=== PATIENT | male | born 1975 | race African-American/Black ===

== ENCOUNTER 2018-08-29 10:23 | Day surgery (SDC) | payer MEDICAID ==
[~2018-08-29] VITALS: Ht 154.9 cm; Wt 42.2 kg
[2018-08-29] MEDS ORDERED: PROPOFOL 200MG/20ML VIAL IV ONE (12:19)
[2018-08-29] MEDS ORDERED: DIATR MEGLU/DIATRIZOATE SOLN 30ML ONE (12:43)
[2018-08-29] MEDS ORDERED: MULT-1241 GT (12:58)
[2018-08-29] MEDS ORDERED: METO5TAB86 GT (12:58)
[2018-08-29] MEDS ORDERED: LACT10SO6 GT (12:58)
[2018-08-29] MEDS ORDERED: ESOM40CA GT (12:58)
[2018-08-29] MEDS ORDERED: OLAN5TAB6 GT (12:58)
[2018-08-29] MEDS ORDERED: DIAZ10TA4 GT (12:58)
== END 2018-08-29 14:50 | disposition home or self-care (01) ==
LOC: OR 10:23
PROVIDERS: ATTEND Internal Medicine Gastroenterology
DX: K94.23 Gastrostomy malfunction (principal); R13.10 Dysphagia, unspecified; E46 Unspecified protein-calorie malnutrition; Z79.899 Other long term (current) drug therapy; Z98.890 Other specified postprocedural states
CPT/HCPCS: 74021; J2704; Q9963